=== PATIENT | female | born 1960 | race Caucasian/White ===

== ENCOUNTER 2020-09-14 19:09 | Emergency (ER) | payer SELFPAY ==
[~2020-09-14] VITALS: Ht 157.5 cm; Wt 42.0 kg
--- NOTE | 2020-09-14 19:37 | NUR ---
pt taken to room via wheelchair, c/o weakness and is audibly coarse on her respirations. placed in gown, and on cr monitor, and ekg done at bedside. to bedside to eval pt, and wrote orders for blood work.
[2020-09-14 20:15] LABS: BASOPHILS % (AUTO) 1 % (0-1); EOSINOPHILS % (AUTO) 2 % (1-7); LYMPHOCYTES % (AUTO) 3 % (22-44); MEAN CORPUSCULAR HEMOGLOBIN 27.2 pg (27.0-34.8); MEAN CORPUSCULAR HGB CONC 33.1 g/dL (32.4-35.8); MEAN PLATELET VOLUME 7.5 fL (7.4-10.4); MONOCYTES % (AUTO) 11 % (2-9); NEUTROPHILS % (AUTO) 84 % (42-75); PLATELET COUNT 332 x10^3/uL (130-400); RED BLOOD COUNT 4.24 x10^6/uL (3.82-5.3); RED CELL DISTRIBUTION WIDTH 17.4 % (9.6-15.2)
[2020-09-14 20:16] LABS: MD NO
[2020-09-14 20:26] LABS: ANION GAP 9 mmol/L (5-15); CALCIUM 9.2 mg/dL (8.5-10.1); CHLORIDE 101 mmol/L (98-107); CREATININE 0.99 mg/dL (0.55-1.02)
[2020-09-14 20:31] VITALS: BP 99/64
--- NOTE | 2020-09-14 20:35 | NUR ---
parking lot laborer to bedside to draw blood and pt tolerated well.
[2020-09-14 20:50] LABS: INTERNATIONAL NORMALIZED RATIO > 8.00 (0.93-1.1); PROTHROMBIN TIME > 84.0 Seconds (9.6-11.5)
--- NOTE | 2020-09-14 21:02 | NUR ---
critical values relayed to Dr. Sorensen, and noted in lab results. PT >84 and INR >8
[2020-09-14] MEDS ORDERED: PHYTONADIONE 5 MG TABLET PO ONE (21:30)
--- NOTE | 2020-09-14 22:02 | NUR ---
vitamin k med given to pt per emar. f/u and d/c instructions given to pt and and they v/u. pt placed in w/c for d/c and tolerated well.
== END 2020-09-14 22:10 ==
LOC: ED 21:30
DX: R79.9 Abnormal finding of blood chemistry, unspecified (principal); I51.7 Cardiomegaly; I50.9 Heart failure, unspecified; R11.2 Nausea with vomiting, unspecified; R19.7 Diarrhea, unspecified; Z87.891 Personal history of nicotine dependence; Z85.118 Personal history of other malignant neoplasm of bronchus and lung
CPT/HCPCS: 36415; 80048; 85025; 85610; 93005; 99284